=== PATIENT | female | born 1955 | race Caucasian/White ===

== ENCOUNTER → 2017-03-25 | Outpatient (REF) | payer BC ==
[2017-03-25 13:07] LABS: ALBUMIN/GLOBULIN RATIO 1.25 (1.00-1.93); ALKALINE PHOSPHATASE 54 U/L (45-117); ALT/SGPT 35 U/L (12-78); ANION GAP 7 MEQ/L (8-16); AST/SGOT 21 U/L (15-37); BILIRUBIN,TOTAL 0.3 MG/DL (0.2-1.0); BLOOD UREA NITROGEN 17 MG/DL (7-18); CALCIUM LEVEL 9.4 MG/DL (8.8-10.2); CARBON DIOXIDE LEVEL 28 MEQ/L (21-32); CHLORIDE LEVEL 103 MEQ/L (98-107); CHOLESTEROL LEVEL 162 MG/DL (<200); CREATININE FOR GFR 0.87 MG/DL (0.55-1.02); FREE T4 1.22 NG/DL (0.76-1.46); GLOMERULAR FILTRATION RATE > 60.0 (>45); GLUCOSE, FASTING 108 MG/DL (80-110); POTASSIUM SERUM 3.9 MEQ/L (3.5-5.1); SODIUM LEVEL 138 MEQ/L (136-145); TOTAL PROTEIN 7.2 GM/DL (6.4-8.2); TRIGLYCERIDES LEVEL 132 MG/DL (<150)
== END ==
LOC: M LABDRAW1 11:58
PROVIDERS: ATTEND Emergency Medicine
DX: E78.2 Mixed hyperlipidemia (principal); I10 Essential (primary) hypertension; E03.9 Hypothyroidism, unspecified; E11.9 Type 2 diabetes mellitus without complications

== ENCOUNTER → 2017-08-19 | Outpatient (REF) | payer BC ==
[2017-08-19 12:28] LABS: ALBUMIN 4.1 GM/DL (3.2-5.2); ALBUMIN/GLOBULIN RATIO 1.41 (1.00-1.93); ALKALINE PHOSPHATASE 58 U/L (45-117); ALT/SGPT 42 U/L (12-78); ANION GAP 7 MEQ/L (8-16); AST/SGOT 23 U/L (7-37); BILIRUBIN,TOTAL 0.4 MG/DL (0.2-1.0); BLOOD UREA NITROGEN 19 MG/DL (7-18); CALCIUM LEVEL 9.4 MG/DL (8.8-10.2); CARBON DIOXIDE LEVEL 29 MEQ/L (21-32); CHLORIDE LEVEL 106 MEQ/L (98-107); CHOLESTEROL LEVEL 198 MG/DL (<200); CREATININE FOR GFR 0.81 MG/DL (0.55-1.02); FREE T4 1.05 NG/DL (0.76-1.46); GLOMERULAR FILTRATION RATE > 60.0 (>45); GLUCOSE, FASTING 120 MG/DL (80-110); POTASSIUM SERUM 4.1 MEQ/L (3.5-5.1); SODIUM LEVEL 142 MEQ/L (136-145); TRIGLYCERIDES LEVEL 158 MG/DL (<150)
== END ==
LOC: M LABDRAW1 10:25
PROVIDERS: ATTEND Emergency Medicine
DX: I10 Essential (primary) hypertension (principal); E78.2 Mixed hyperlipidemia; E11.9 Type 2 diabetes mellitus without complications; E03.9 Hypothyroidism, unspecified

== ENCOUNTER → 2018-03-10 | Outpatient (REF) | payer BC ==
[2018-03-10 15:33] LABS: ALT/SGPT 43 U/L (12-78); ANION GAP 5 MEQ/L (8-16); AST/SGOT 28 U/L (7-37); BLOOD UREA NITROGEN 19 MG/DL (7-18); CALCIUM LEVEL 9.5 MG/DL (8.8-10.2); CARBON DIOXIDE LEVEL 27 MEQ/L (21-32); CHLORIDE LEVEL 107 MEQ/L (98-107); CREATININE FOR GFR 0.94 MG/DL (0.55-1.30); GLOMERULAR FILTRATION RATE > 60.0 (>45); GLUCOSE, FASTING 126 MG/DL (70-100); POTASSIUM SERUM 4.3 MEQ/L (3.5-5.1); SODIUM LEVEL 139 MEQ/L (136-145)
[2018-03-10 15:34] LABS: ALBUMIN 4.3 GM/DL (3.2-5.2); ALBUMIN/GLOBULIN RATIO 1.34 (1.00-1.93); ALKALINE PHOSPHATASE 57 U/L (45-117); BILIRUBIN,TOTAL 0.5 MG/DL (0.2-1.0); CHOLESTEROL LEVEL 158 MG/DL (<200); CHOLESTEROL RISK RATIO 2.771 (<5); FREE T4 1.06 NG/DL (0.76-1.46); HDL CHOLESTEROL 57 MG/DL (>40); LDL CHOLESTEROL 80.8 MG/DL (<100); NON-HDL-C 101 MG/DL; TOTAL PROTEIN 7.5 GM/DL (6.4-8.2); TRIGLYCERIDES LEVEL 101 MG/DL (<150)
[2018-03-10 15:39] LABS: ESTIMATED AVERAGE GLUCOSE 148 MG/DL (60-110); HEMOGLOBIN A1c 6.8 %
== END ==
LOC: M LAB REF 14:18
DX: E78.2 Mixed hyperlipidemia (principal); I10 Essential (primary) hypertension; E11.9 Type 2 diabetes mellitus without complications; E03.9 Hypothyroidism, unspecified
CPT/HCPCS: 84443

== ENCOUNTER → 2018-09-14 | Outpatient (REF) | payer BC ==
[2018-09-14 18:28] LABS: ALBUMIN 4.6 GM/DL (3.2-5.2); ALKALINE PHOSPHATASE 62 U/L (45-117); ALT/SGPT 52 U/L (12-78); ANION GAP 5 MEQ/L (8-16); AST/SGOT 28 U/L (7-37); BILIRUBIN,TOTAL 0.4 MG/DL (0.2-1.0); BLOOD UREA NITROGEN 22 MG/DL (7-18); CALCIUM LEVEL 9.9 MG/DL (8.8-10.2); CARBON DIOXIDE LEVEL 31 MEQ/L (21-32); CHLORIDE LEVEL 104 MEQ/L (98-107); CREATININE FOR GFR 0.84 MG/DL (0.55-1.30); GLOMERULAR FILTRATION RATE > 60.0 (>45); GLUCOSE, FASTING 115 MG/DL (70-100); SODIUM LEVEL 140 MEQ/L (136-145); TOTAL PROTEIN 7.3 GM/DL (6.4-8.2)
[2018-09-14 18:35] LABS: ESTIMATED AVERAGE GLUCOSE 140 MG/DL (60-110); HEMOGLOBIN A1c 6.5 %
== END ==
LOC: M LABDRAW1 11:50
DX: E11.9 Type 2 diabetes mellitus without complications (principal); E03.9 Hypothyroidism, unspecified
CPT/HCPCS: 84443

== ENCOUNTER → 2018-12-05 | Outpatient (REF) | payer BC ==
[2018-12-05 10:56] LABS: ALBUMIN 4.4 GM/DL (3.2-5.2); ALT/SGPT 47 U/L (12-78); BASO # 0.1 10^3/uL (0.0-0.2); BASO % 0.8 % (0.0-1.0); BILIRUBIN,TOTAL 0.4 MG/DL (0.2-1.0); BLOOD UREA NITROGEN 13 MG/DL (7-18); CALCIUM LEVEL 9.4 MG/DL (8.8-10.2); CARBON DIOXIDE LEVEL 30 MEQ/L (21-32); CHLORIDE LEVEL 106 MEQ/L (98-107); CREATININE FOR GFR 0.77 MG/DL (0.55-1.30); EOS # 0.2 10^3/uL (0.0-0.50); EOS % 3.6 % (0.0-3.0); GLOMERULAR FILTRATION RATE > 60.0 (>45); GLUCOSE, FASTING 118 MG/DL (70-100); HEMATOCRIT 45.2 % (36.0-47.0); HEMOGLOBIN 14.4 g/dl (12.0-15.5); LYMPH % 49.8 % (24.0-44.0); MEAN CORPUSCULAR HEMOGLOBIN 29.2 pg (27.0-33.0); MEAN CORPUSCULAR HGB CONC 31.9 g/dl (32.0-36.5); MEAN CORPUSCULAR VOLUME 91.7 fl (80.0-96.0); MONO # 0.4 10^3/uL (0.0-0.8); MONO % 7.2 % (0.0-5.0); NEUTROPHILS # 2.3 10^3/uL (1.8-7.7); NEUTROPHILS % 38.3 % (36.0-66.0); PLATELET COUNT, AUTOMATED 197 10^3/uL (150-450); POTASSIUM SERUM 4.2 MEQ/L (3.5-5.1); RED BLOOD COUNT 4.93 10^6/uL (4.00-5.40); SODIUM LEVEL 142 MEQ/L (136-145); TOTAL PROTEIN 7.4 GM/DL (6.4-8.2); WHITE BLOOD COUNT 6.1 10^3/uL (4.0-10.0)
[2018-12-05 11:16] LABS: HEMOGLOBIN A1c 6.4 %
== END ==
LOC: M LABDRAW1 10:30
PROVIDERS: ATTEND Family Medicine
DX: E11.69 Type 2 diabetes mellitus with other specified complication (principal)

== ENCOUNTER 2019-08-16 08:52 | Outpatient (RCR) | payer BC ==
[2019-08-23] MEDS ORDERED: FENO160T10 PO (10:30)
[2019-08-23] MEDS ORDERED: MULTCAP PO (10:30)
[2019-08-23] MEDS ORDERED: LEVO112T2 PO (10:30)
[2019-08-23] MEDS ORDERED: NAPR220C14 PO (10:30)
[2019-08-23] MEDS ORDERED: VALS160T PO (10:48)
[2019-09-06] MEDS ORDERED: PERC5TAB12 PO ×2 (07:22→07:25)
[2019-09-06] MEDS ORDERED: XARE10TA PO (07:22)
== END 2019-09-09 ==
LOC: M PT 08:52
PROVIDERS: ATTEND Physician Assistant
DX: Z47.89 Encounter for other orthopedic aftercare (principal)

== ENCOUNTER → 2019-08-16 | Outpatient (CLI) | payer BC ==
[2019-08-16 09:03] LABS: HEMATOCRIT 45.8 % (36.0-47.0); HEMOGLOBIN 14.2 g/dl (12.0-15.5); MEAN CORPUSCULAR HEMOGLOBIN 28.9 pg (27.0-33.0); MEAN CORPUSCULAR VOLUME 93.3 fl (80.0-96.0); PLATELET COUNT, AUTOMATED 189 10^3/uL (150-450); RED BLOOD COUNT 4.91 10^6/uL (4.00-5.40); WHITE BLOOD COUNT 7.8 10^3/uL (4.0-10.0)
[2019-08-16 09:28] LABS: INR 0.99; PROTHROMBIN TIME 12.8 SECONDS (11.8-14.0)
[2019-08-16 09:29] LABS: ALBUMIN 4.5 GM/DL (3.2-5.2); ALT/SGPT 60 U/L (12-78); BILIRUBIN,TOTAL 0.6 MG/DL (0.2-1.0); BLOOD UREA NITROGEN 19 MG/DL (7-18); CALCIUM LEVEL 9.8 MG/DL (8.8-10.2); CARBON DIOXIDE LEVEL 29 MEQ/L (21-32); CHLORIDE LEVEL 105 MEQ/L (98-107); CREATININE FOR GFR 0.82 MG/DL (0.55-1.30); GLOMERULAR FILTRATION RATE > 60.0 (>45); GLUCOSE, FASTING 137 MG/DL (70-100); POTASSIUM SERUM 4.1 MEQ/L (3.5-5.1); SODIUM LEVEL 140 MEQ/L (136-145); TOTAL PROTEIN 7.5 GM/DL (6.4-8.2)
[2019-08-16 09:30] LABS: ERYTHROCYTE SEDIMENTATION RATE 5 mm/hr (0-30)
--- NOTE | 2019-08-16 15:09 | REP ---
Two-view chest: A 03/29. Indication: New preoperative assessment. Comparison: 07/03/2009. Findings: Multiple left axillary and right upper quadrant abdominal surgical clips are present. Scoliosis is noted. There is no air space consolidation. No significant pleural effusion or pneumothorax is present. There is no significant enlargement of the cardiac silhouette. Impression: No acute cardiopulmonary process. Electronically Signed by Scout Fiore DO 08/16/2019 03:01 P
--- NOTE | 2019-08-17 08:29 | ECGEPIP ---
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
== END ==
LOC: M LAB 08:06
PROVIDERS: ATTEND Orthopaedic Surgery
DX: Z01.810 Encounter for preprocedural cardiovascular examination (principal); M17.11 Unilateral primary osteoarthritis, right knee

== ENCOUNTER 2019-09-05 09:50 | Inpatient (IN) | payer BC ==
--- NOTE | 2019-08-30 10:58 | HPE ---
DATE OF ANTICIPATED ADMISSION: 09/05/2019 ATTENDING PHYSICIAN: Dr. Beto Kovacs CHIEF COMPLAINT: Right knee pain and stiffness. HISTORY: Kandace is a 63-year-old female presenting to clinic with continued right knee pain and stiffness. She has failed to improve with conservative measures. Patient continues to have symptoms with weightbearing activities and activities of daily living. She consented for an elective right total knee arthroplasty with Dr. Kovacs for her continued symptoms. Medical optimization completed with Dr. Silvia Olivares. CURRENT MEDICATIONS: - thyroxine 112 mcg daily - Epipen as needed - Diovan/hydrochlorothiazide 160/12.5 mg daily - fenofibrate 160 mg daily - Aleve 220 mg twice daily - multivitamin - melatonin 3 mg every evening - amlodipine 5 mg daily - Lofibra 160 mg daily ALLERGIES: Peanut oil, nuts. CHRONIC MEDICAL CONDITIONS: History of breast cancer and uterine cancer. Hypertension. Hyperlipidemia. Hypothyroid. Insomnia. PAST SURGICAL HISTORY: Dilation and curettage. Lumpectomy. Cholecystectomy. Appendectomy. Uterine and endometrial biopsies. Hysterectomy with lymph node dissection. SOCIAL HISTORY: The patient is and lives at home with spouse. She does not use tobacco and occasionally uses alcohol. REVIEW OF SYSTEMS: The patient denies fevers, chills, nausea, vomiting or diarrhea. She denies chest pain, shortness of breath, lightheadedness, dizziness or headaches. She denies abdominal pain. She denies any recent upper respiratory or urinary tract infection symptoms. The patient does continue to have right knee pain with weightbearing activities and activities of daily living. PHYSICAL EXAMINATION: GENERAL: Well-nourished, well-developed female in no apparent distress. She is alert, oriented and cooperative. Mood and affect are appropriate. VITAL SIGNS: Height 60 inches, weight 224.2 pounds, temperature 96.1, blood pressure 142/86, heart rate 74, respirations 12. NECK: Supple without lymphadenopathy. HEART: Regular rate and rhythm. LUNGS: Clear to auscultation bilaterally. Breathing is regular and nonlabored. ABDOMEN: Bowel sounds are present. Abdomen is soft and nontender to palpation. MUSCULOSKELETAL: Right knee exhibits no gross abnormalities. Skin is intact. She can extend knee fully and flex to approximately 110 degrees. Right lower extremity strength is 5/5. No hip irritability elicited with range of motion testing. Calf is soft, nontender to palpation with no palpable cords noted. She is neurovascularly intact distally. LABORATORY DATA: Comprehensive metabolic profile: Fasting glucose elevated at 137, BUN elevated at 19, creatinine 0.82, GFR greater than 60, sodium 140, potassium 4.1, chloride 105, carbon dioxide 29, anion gap decreased at 6, calcium 9.8, AST elevated at 41, ALT 60, alkaline phosphatase 72, total bilirubin 0.6, total protein 7.5, albumin 4.5, albumin-globulin ratio 1.50. Prothrombin time 12.8, INR 0.99. Complete blood count: ESR 5, WBC 7.80, RBC 4.91, hemoglobin 14.2, hematocrit 45.8, platelets 189.. IMPRESSION: Right knee osteoarthritis with x-rays notable for end-stage degenerative changes. PLAN: The patient has consented for an elective right total knee arthroplasty with Dr. Kovacs for her continued symptoms. Medical optimization completed with Dr. Silvia Olivares. RITA
[~2019-09-05] VITALS: Ht 152.4 cm; Wt 100.7 kg
[~2019-09-05 09:50] MED LIST: ACETAMINOPHEN 500 MG TAB PO ONE; FENO160T10 PO; LEVO112T2 PO; LIDOCAINE 1% MDV 20ML VIAL SQ PRN; LR 1,000 ML IV ONE; MULTCAP PO; NAPR220C14 PO; VALS160T PO; ceFAZolin SOD 1 GM in D5W MINI-BAG PLUS 50 ML IV ONE; ceFAZolin SOD 2 GM in IV 1 EA IV ONE
[2019-09-05] MEDS ORDERED: EPINEPHrine INJ 1 MG/ML 1ML AMP As Ordered ONE (12:58)
[2019-09-05] MEDS ORDERED: TRANEXAMIC ACID 100 MG/ML 10ML VIAL As Ordered ONE (12:58)
[2019-09-05] MEDS ORDERED: BUPIVACAINE HCL 0.25% 10 ML VIAL As Ordered ONE (12:58)
[2019-09-05] MEDS ORDERED: ceFAZolin 1GM INJ (J0690 PER 500MG) As Ordered ONE (12:58)
[2019-09-05] MEDS ORDERED: BUPIVACAINE LIPOSOME/PF 1.3% 20ML VIAL (13.3MG/ML)(EXPAREL)(C9290 PER1MG) As Ordered ONE (12:59)
[2019-09-05] MEDS ORDERED: LIDOCAINE 2% INJ 100 MG/5 ML SDV (FOR ANES.) As Ordered ONE (13:19)
[2019-09-05] MEDS ORDERED: PROPOFOL 200 MG/20 ML VIAL As Ordered ONE ×4 (13:19→16:23)
[2019-09-05] MEDS ORDERED: MIDAZOLAM INJ 2 MG/2 ML VIAL (J2250) As Ordered ONE (13:29)
[2019-09-05] MEDS ORDERED: fentaNYL 100 MCG/2 ML INJECTION (J3010) As Ordered ONE (13:29)
[2019-09-05] MEDS ORDERED: MIDAZOLAM INJ 5 MG/ML VIAL (J2250) As Ordered ONE (13:44)
[2019-09-05] MEDS ORDERED: MIDAZOLAM INJ 2 MG/2 ML VIAL (J2250) IV ONE (14:00)
[2019-09-05] MEDS ORDERED: fentaNYL 100 MCG/2 ML INJECTION (J3010) IV ONE (14:00)
[2019-09-05] MEDS ORDERED: ONDANSETRON 4MG/2ML VIAL (J2405) As Ordered ONE (15:48)
[2019-09-05] MEDS ORDERED: ePHEDrine SULFATE 25 MG/5 ML(5MG/ML) SYRINGE As Ordered ONE (15:48)
[2019-09-05] MEDS ORDERED: HYDROMORPHONE HCL 0.5 MG/ 0.5 ML SYRINGE (J1170 PER 1) IV PRN ×2 (17:15)
[2019-09-05] MEDS ORDERED: ONDANSETRON 4MG/2ML VIAL (J2405) IV PRN (17:15)
[2019-09-05] MEDS ORDERED: FLEET ENEMA PR PRN (17:15)
[2019-09-05] MEDS ORDERED: LR 1,000 ML IV SCH ×2 (17:15)
[2019-09-05] MEDS ORDERED: ACETAMINOPHEN TAB 650MG DOSE (2X325MG) PO PRN (17:15)
[2019-09-05] MEDS ORDERED: PERCOCET 5MG/325MG TAB As Ordered ONE (17:29)
--- NOTE | 2019-09-05 17:30 | REP ---
RIGHT KNEE, TWO VIEWS: Two views of the right knee performed. There is a total knee prosthesis in place, in good position. Osseous structures are well aligned and intact. Metallic skin brayden are seen anteriorly. Electronically Signed by Michoacano Lancaster MD 09/06/2019 09:57 A
[2019-09-05] MEDS: PERCOCET 5MG/325MG TAB PO PRN ×2 (17:34→17:59)
[2019-09-05] MEDS: fentaNYL 100 MCG/2 ML INJECTION (J3010) IV PRN ×4 (17:40→18:09)
--- NOTE | 2019-09-05 18:21 | CR.PDOC ---
General Date of Consultation: Sep 05, 2019 Consultation CHIEF COMPLAINT: R. knee pain HISTORY OF PRESENT ILLNESS: Patient is a 63F with PMH HTN, Hypothyroidism, and chronic R. knee pain presented for R. total knee replacement. She reported that she has had pain in the R. knee for 52 years and finally got the surgery for it today. She reports feeling some pain in the right knee, 7/10, radiating inferiorly. She offered no other complaints apart from R. knee discomfort including any chest pain, SOB, fever, chills, nausea or vomiting. PAST MEDICAL HISTORY: Refer to HPI PAST SURGICAL HISTORY: Lumpectomy Cholecystectomy Appendectomy Hysterectomy SOCIAL HISTORY: Social alcohol. Denies tobacco or illicit drug use. FAMILY HISTORY: Father- CAD Mother- CO, DM ALLERGIES: Please see below. REVIEW OF SYSTEMS: 10 point review of system negative except as stated in HPI HOME MEDICATIONS: Please see below. PHYSICAL EXAMINATION: General: Mild distress, Alert Eyes: Normal sclera, EOMI, DAPHNE HENT: Atraumatic Cardiovascular: Normal rate, normal rhythm. Pulmonary: Clear to auscultation b/l, no wheezing GI: Soft, nontender, nondistended Skin: Warm and dry MSK: R. knee covered in wrap, clean and dry. Neuro: CN grossly intact. No focal deficits. Strengths equal b/l. Psych: oriented x 3 LABORATORY DATA: See below. MICROBIOLOGY: Please see below. ASSESSMENT AND PLAN: 1. R. knee pain - s/p R. total knee replacement 09/05. - Pain control per ortho. - on Xarelto for DVT ppx. 2. Hypothyroidism - Resume home dose synthroid. 3. HTN - BP controlled at this time. - Diuretics had been held today. Resume all meds tomorrow. 4. HLD - Resume statin. 5. Insominia - Intermittently and takes melatonin at home PRN. - Rozerem PRN. Vital Signs/I&O Vital Signs Date Time Temp Pulse Resp B/P (MAP) Pulse Ox O2 Delivery O2 Flow Rate FiO2 09/05/19 17:44 97.5 79 16 118/77 (91) 96 Nasal Cannula 2 Allergies Coded Allergies: No Known Allergies (Verified , 01/30/05) Home Medications Scheduled Fenofibrate (Fenofibrate) 160 Mg Tablet, 160 MG PO DAILY for 30 Days, #30 (Reported) Levothyroxine Sodium (Levothyroxine Sodium) 112 Mcg Tablet, 112 MCG PO DAILY for 30 Days, #30 (Reported) Multivitamin (Multivitamins) 1 Each Capsule, 1 CAP PO DAILY, #30 (Reported) Naproxen Sodium (Aleve) 220 Mg Capsule, 220 MG PO DAILY, (Reported) Valsartan/Hydrochlorothiazide (Valsartan-Hctz 160-12.5 mg Tab) 1 Each Tablet, 1 TAB PO DAILY for 30 Days, #30 (Reported) RISHABH FONTENOT MD Sep 05, 2019 18:21
[2019-09-05 18:45] VITALS: BP 145/82
[2019-09-05 19:05] VITALS: BP 140/76
[2019-09-05] MEDS ORDERED: PERCOCET 5MG/325MG TAB PO PRN (19:15)
[2019-09-05] MEDS ORDERED: ONDANSETRON 4 MG TAB (S0181) PO PRN (19:15)
[2019-09-05] MEDS: ceFAZolin SOD 2 GM in IV 1 EA IV SCH (19:57)
[2019-09-05 20:00] VITALS: BP 156/85
[2019-09-05 21:28] VITALS: BP 150/84
[2019-09-05 22:33] VITALS: BP 146/86
[2019-09-05 23:30] VITALS: BP 151/78
[2019-09-06] MEDS: PERCOCET 5MG/325MG TAB PO PRN ×2 (02:36→12:03)
[2019-09-06] MEDS: ceFAZolin SOD 2 GM in IV 1 EA IV SCH ×2 (02:37→08:37)
[2019-09-06 06:00] VITALS: BP 157/84
[2019-09-06] MEDS ORDERED: LEVOTHYROXINE 112MCG TABLET (0.112MG) PO SCH (06:00)
[2019-09-06 06:01] LABS: HEMOGLOBIN 12.3 g/dl (12.0-15.5); MEAN CORPUSCULAR HGB CONC 32.4 g/dl (32.0-36.5); MEAN CORPUSCULAR VOLUME 92.7 fl (80.0-96.0); PLATELET COUNT, AUTOMATED 187 10^3/uL (150-450)
[2019-09-06 06:29] LABS: BLOOD UREA NITROGEN 14 MG/DL (7-18); CALCIUM LEVEL 8.8 MG/DL (8.8-10.2); CARBON DIOXIDE LEVEL 27 MEQ/L (21-32); CHLORIDE LEVEL 108 MEQ/L (98-107); CREATININE FOR GFR 0.87 MG/DL (0.55-1.30); GLOMERULAR FILTRATION RATE > 60.0 (>45); GLUCOSE, FASTING 163 MG/DL (70-100); POTASSIUM SERUM 4.2 MEQ/L (3.5-5.1); SODIUM LEVEL 141 MEQ/L (136-145)
[2019-09-06] MEDS ORDERED: PERC5TAB12 PO ×2 (07:22→07:25)
[2019-09-06] MEDS ORDERED: XARE10TA PO (07:22)
[2019-09-06 08:37] VITALS: BP 157/84
[2019-09-06] MEDS ORDERED: MOM 30ML SUSPENSION UDC PO SCH (09:00)
[2019-09-06] MEDS ORDERED: VALSARTAN 80 MG TAB (DIOVAN) PO SCH (09:00)
[2019-09-06] MEDS ORDERED: hydroCHLOROthiazide 12.5 MG CAPSULE PO SCH (09:00)
[2019-09-06] MEDS ORDERED: SENOKOT S TAB PO SCH (09:00)
[2019-09-06] MEDS ORDERED: MIRALAX *UNIT DOSE* 17GM PACKET PO SCH (09:00)
[2019-09-06 10:00] VITALS: BP 125/74
--- NOTE | 2019-09-06 11:56 | IPNPDOC ---
Date Seen The patient was seen on 09/06/19. Progress Note SUBJECTIVE: Patient seen and examined this morning. She was very pleasant. She states shes feeling well at this current time. She does endorse that early this morning she was nauseous and she did have an episode of vomiting of last night meal. She did ambulate again after and her nausea did get better she states. Her blood pressure has gotten better as well when she was restarted on her home medications. She has no other complaints at this time. She denies fevers, chills, night sweats, abdominal pain. She denies any worsening right knee pain as well. OBJECTIVE PHYSICAL EXAMINATION: VITAL SIGNS: Please see below. GENERAL: Pleasant 63-year-old female laying in bed awake alert oriented speaking in complete sentences no acute distress] HEENT: Moist mucous membranes no JVD CARDIOVASCULAR: S1 S2 regular no additional heart sounds appreciated. RESPIRATORY: Clear to auscultation bilaterally. ABDOMINAL: Bowel sounds present abdomen soft and nontender EXTREMITIES: No clubbing cyanosis or edema. Right knee surgical site examined. Dressing on top no bloody discharge or tenderness on palpation. Appropriate swelling around the knee status post surgical manipulation. Range of Motion not tested. NEUROLOGICAL cranial 2 through 12 grossly intact no gross focal deficits appreci ated PSYCHOLOGICAL: Appropriate LABORATORY DATA, MICROBIOLOGY: Please see below. IMAGING STUDIES: 09/06/2019 - Right knee Xray There is a total knee prosthesis in place, in good position. Osseous structures are well aligned and intact. Metallic skin brayden are seen anteriorly. ASSESSMENT AND PLAN: This is a 63 -year-old female here for elective right total knee replacement. PROBLEMS: 1. Right knee pain status post right total knee replacement -Pain control per ortho - DVT prophylaxis per orthopedic -Bowel regimen per ortho 2. Hypothyroidism - c/w Synthroid 112 g 3. HTN - c/w valsartan and hydrochlorothiazide 4. HLD -Well hold home fenofibrate. Can resume on discharge 5. Insominia - Intermittently and takes melatonin at home PRN. - c/w Rozerem PRN. DVT prophylaxis: Xarelto 10 mg DISPOSITION: Medically stable. May discharge home Once cleared by PT ATTENDING NOTE I have personally evaluated and examined the patient. Discussed with residents and student regarding plan of care and agree with the above assessment and plan. VS, I&O, 24H, Fishbone Vital Signs/I&O Vital Signs Date Time Temp Pulse Resp B/P (MAP) Pulse Ox O2 Delivery O2 Flow Rate FiO2 09/06/19 08:37 157/84 09/06/19 06:00 98.7 83 18 99 Room Air 09/05/19 22:33 2.0 I&O- Last 24 Hours up to 6 AM 09/06/19 06:00 Intake Total 2334 ml Output Total 450 ml Balance 1884 ml Laboratory Data 24H LABS Laboratory Tests 2 09/06/19 05:44: Nucleated Red Blood Cells % (auto) 0.0, Anion Gap 6L, Glomerular Filtration Rate > 60.0, Calcium Level 8.8 CBC/BMP Laboratory Tests 09/06/19 05:44 JAUN AMADOR DO Sep 06, 2019 11:55 RISHABH FONTENOT MD Sep 06, 2019 13:42
[2019-09-06] MEDS ORDERED: RAMELTEON 8 MG TAB (ROZEREM) PO PRN (12:00)
[2019-09-06] MEDS ORDERED: ROPIvacaine 0.5% 30 ML INJECTION (J2795 PER 1MG) ONE (15:10)
[2019-09-06] MEDS ORDERED: dexameTHASONE 10 MG/1 ML VIAL PRES.FREE (J1100) ONE (15:10)
[2019-09-06] MEDS ORDERED: RIVAROXABAN 10 MG TAB (XARELTO) PO SCH (18:00)
--- NOTE | 2019-09-07 07:58 | RO ---
DATE OF PROCEDURE: 09/05/2019 PREOPERATIVE DIAGNOSIS: Right knee degenerative arthritis. POSTOPERATIVE DIAGNOSIS: Right knee degenerative arthritis. PROCEDURE: Right total knee arthroplasty using a size 5 cruciate retaining cemented femoral component with a size 4 tibial tray and a 5 mm rotating platform polyethylene insert and a 32 mm button. All components were cemented. Prosthesis was an Attune knee made by [employer]. SURGEON: Beto Goddard MD FINISH CLEANER: Mr. Farooq Pablo ANESTHESIA: Spinal with right femoral nerve block. COMPLICATIONS: None. ESTIMATED BLOOD LOSS: 20 mL. SPECIMENS: Joint surface. DESCRIPTION OF PROCEDURE: Antibiotics were given intravenously preoperatively, then a successful a right femoral nerve block and then a spinal anesthetic was induced. Tourniquet placed right upper thigh and not inflated. Right lower extremity was carefully prepped and draped in the usual sterile fashion and then elevated. After appropriate time-out, the tourniquet was inflated. Then, a longitudinal incision was made for a medial parapatellar approach to the knee. Bovie cautery was used to coagulate crossing vessels. Capsulotomy was performed and subperiosteal dissection around the proximal medial and lateral tibia plateaus performed and the patella was everted and the knee flexed. Anterior cruciate ligament (ACL) debrided. Drill placed down the center of the femoral canal, followed by the intramedullary kristen and the distal femoral cutting jig set at 9 mm resection level at a 5 degree valgus for a right knee. Block was pinned into position. Distal femoral cut performed. It looked a bit thin especially laterally, but we decided to go by the guide from the template. We went along with the measurements from cutting jig. AP sizing jig measured for a size 5. 3 degrees of external rotation dialed in for a right knee. Pins were placed, followed by the 4-in-1 block, then the anterior, posterior and chamfer cuts performed. The sulcus cut guide was then placed and then sulcus cut performed. We then exposed the proximal tibia, used the extramedullary tibial alignment jig to estimate being parallel to the mechanical axis. We referenced off the medial tibial condyle at 4 mm resection level. The block was pinned into position. Secondary check with the extramedullary kristen confirmed that we appeared to be parallel to the mechanical axis of the tibia. Thus, the proximal tibial osteotomy was performed. The lamina dealer account manager was placed medially and we performed a completion lateral meniscectomy and debridement of the posterior lateral osteophytes. We then placed a lamina dealer account manager laterally and performed a completion medial meniscectomy and debridement of the posterior medial osteophytes. The sizing block placed. 6 mm in flexion seemed to reasonable. However, she was quite tight in extension and this quite reproducible. She did not quite come out to full extension. Thus, I felt it best to take more of the distal femur. Thus, the intramedullary kristen was re-applied and then we set the distal femoral cutting jig at 2 mm, re-pinned the jig and took additional 2 mm. The spacer block was trialed once again and still a bit too snug and I felt an additional 2 mm would help get her fully extended. Thus, I took two more additional millimeters of the distal femur. We then used the batwing and the saw blade to reapply the 4-in-1 block in appropriate position and then redid the chamfer cuts and the sulcus cut. The spacer block now fit nicely at actually 5 mm and she had good stability in varus and valgus stress testing both in flexion and extension. We then exposed the proximal tibia, sized for a #4 tibial tray, which was pinned into position, followed by the reamer and the broach. Trial polyethylene was placed. Trial femoral component was placed. We brought the knee into the extension, everted the patella and performed a patellar osteotomy. Sized for a 32 button. The lug hole was drilled. Trial placed. The patellofemoral tracking was anatomic. We drilled the lug holes for the femur, then removed all the trials. Copiously pulsatile lavage irrigated out the knee joint at this point, and then Exparel was placed in the subperiosteal tissues of the distal femur and the tibia. Mr. Farooq Pablo mixed the cement on the back table as I prepared the bony surfaces for cementing by copiously pulsatile lavage irrigating out the knee joint. Mr. Pablo was critical to the success of this difficult procedure by helping with appropriate soft tissue retraction, helped to manipulate the knee, helped to close the wound, helped to mix cement, helped to prepare the patient, amongst many other tasks to allow me to perform the operation smoothly, efficiently and safely. Once all the bony surfaces were thoroughly irrigated and dried, we cemented the tibial tray, removed the excess cement. Placed the polyethylene, cemented the femoral component and removed excess cement. Brought the knee into extension and then cemented the patellar button, removed excess cement and held it with a clamp until the cement hardened with the knee in full extension. As were awaiting for the cement to harden, we copiously irrigated out the knee joint with sterile saline solution and then tranexamic acid (TXA), then began closing the apex through arthrotomy with two #1 PDS sutures. The medial parapatellar area was closed with a #1 PDS suture, then the capsule was closed with a running double armed Stratafix. We then released the tourniquet and copiously irrigated out the subdermal tissues, closed them with interrupted #2-0 PDS suture. The skin was closed with brayden and covered by an Optifoam and dry sterile bulky dressing. She was then transferred to the recovery room in stable condition. There were no intraoperative complications.
--- NOTE | 2019-09-11 16:09 | DSES ---
DATE OF ADMISSION: 09/05/2019 DATE OF DISCHARGE: 09/06/2019 ADMITTING DIAGNOSIS: Osteoarthritis right knee. OTHER DIAGNOSES: Hypertension. Hypothyroidism. DISCHARGE DIAGNOSIS: Osteoarthritis right knee status post right total knee arthroplasty. OPERATION PERFORMED: Right total knee arthroplasty. HISTORY: This is a pleasant, 63-year-old female patient with progressively worsening right knee pain and stiffness. She failed to improve with conservative management. She was admitted for elective knee replacement on the right side. HOSPITAL COURSE: The patient was admitted on day of surgery, underwent a right total knee arthroplasty, which was uneventful. She did well in the postoperative period and hospital course was without complications. She was up with physical therapy per their protocol and her pain was controlled. On day of discharge, she was doing well weightbearing as tolerated on her right lower extremity. She will use Xarelto 10 mg per their protocol for deep venous thrombosis (DVT) prophylaxis. She also use thromboembolic deterrent (DUANE) stockings for 30 days postop for DVT prophylaxis. She will use oral pain medications for pain control. She will followup in our office in 10-14 days. She was given instructions to include but not limited to wound monitoring activity limitations. Please refer to the medical record for further details.
== END 2019-09-06 15:30 | disposition home or self-care (01) | DRG 302 ==
LOC: M OR 11:05 → M MS5PR 18:25
PROVIDERS: ADMIT Orthopaedic Surgery; ATTEND Orthopaedic Surgery
PROC: 0SRC0J9 Replacement of Right Knee Joint with Synthetic Substitute, Cemented, Open Approach (ICD-10-PCS; principal; 2019-09-05 14:55)
DX: M17.11 Unilateral primary osteoarthritis, right knee (principal); I10 Essential (primary) hypertension; E78.5 Hyperlipidemia, unspecified; E03.9 Hypothyroidism, unspecified; G47.00 Insomnia, unspecified; Z91.018 Allergy to other foods; Z91.010 Allergy to peanuts; Z85.3 Personal history of malignant neoplasm of breast; Z85.42 Personal history of malignant neoplasm of other parts of uterus; Z79.899 Other long term (current) drug therapy; Z90.49 Acquired absence of other specified parts of digestive tract; Z90.79 Acquired absence of other genital organ(s)

== ENCOUNTER → 2019-10-10 | Outpatient (RCR) | payer MEDICARE, OTHER ==
[~2019-10-10] MED LIST changes: -ACETAMINOPHEN 500 MG TAB PO ONE; -LIDOCAINE 1% MDV 20ML VIAL SQ PRN; -LR 1,000 ML IV ONE; +PERC5TAB12 PO; +XARE10TA PO; -ceFAZolin SOD 1 GM in D5W MINI-BAG PLUS 50 ML IV ONE; -ceFAZolin SOD 2 GM in IV 1 EA IV ONE
== END ==
LOC: M PT 09-11 13:28
PROVIDERS: ATTEND Orthopaedic Surgery
DX: Z47.1 Aftercare following joint replacement surgery (principal); Z96.651 Presence of right artificial knee joint

== ENCOUNTER 2019-11-09 09:11 | Outpatient (RCR) | payer MEDICARE, OTHER ==
[~2019-11-09 09:11] MED LIST changes: -VALS160T PO; +VALS160T2 PO
== END 2019-11-10 ==
LOC: M PT 09:11
PROVIDERS: ATTEND Orthopaedic Surgery
DX: Z47.89 Encounter for other orthopedic aftercare (principal); Z96.651 Presence of right artificial knee joint

== ENCOUNTER 2019-11-23 09:09 | Outpatient (RCR) | payer MEDICARE, OTHER | END 2019-12-09 | LOC: M PT 09:09 | PROVIDERS: ATTEND Orthopaedic Surgery | DX: Z47.89 Encounter for other orthopedic aftercare (principal); Z96.651 Presence of right artificial knee joint ==

== ENCOUNTER → 2021-09-19 | Outpatient (CLI) | payer MEDICARE ==
[2021-09-19 13:29] LABS: BASO % 0.5 % (0.0-1.0); EOS # 0.2 10^3/uL (0.0-0.5); EOS % 2.7 % (0.0-3.0); HEMATOCRIT 46.6 % (36.0-47.0); HEMOGLOBIN 14.7 g/dl (12.0-15.5); LYMPH # 3.9 10^3/uL (1.5-5.0); LYMPH % 52.6 % (24.0-44.0); MEAN CORPUSCULAR HEMOGLOBIN 29.1 pg (27.0-33.0); MEAN CORPUSCULAR HGB CONC 31.5 g/dl (32.0-36.5); MEAN CORPUSCULAR VOLUME 92.3 fl (80.0-96.0); MONO # 0.6 10^3/uL (0.0-0.8); MONO % 7.5 % (2.0-8.0); NEUTROPHILS # 2.7 10^3/uL (1.5-8.5); NEUTROPHILS % 36.4 % (36.0-66.0); PLATELET COUNT, AUTOMATED 198 10^3/uL (150-450); RED BLOOD COUNT 5.05 10^6/uL (4.00-5.40); WHITE BLOOD COUNT 7.5 10^3/uL (4.0-10.0)
[2021-09-19 13:57] LABS: HEMOGLOBIN A1c 5.9 %
[2021-09-19 14:08] LABS: ALBUMIN 4.1 GM/DL (3.2-5.2); ALT/SGPT 31 U/L (12-78); BILIRUBIN,TOTAL 0.4 MG/DL (0.2-1.0); BLOOD UREA NITROGEN 20 MG/DL (7-18); CALCIUM LEVEL 10.1 MG/DL (8.8-10.2); CARBON DIOXIDE LEVEL 29 MEQ/L (21-32); CHLORIDE LEVEL 106 MEQ/L (98-107); CHOLESTEROL LEVEL 167 MG/DL (<200); CHOLESTEROL RISK RATIO 2.455 (<5); CREATININE FOR GFR 0.65 MG/DL (0.55-1.30); FREE T4 0.93 NG/DL (0.76-1.46); GLOMERULAR FILTRATION RATE > 60.0 (>45); GLUCOSE, FASTING 122 MG/DL (70-100); HDL CHOLESTEROL 68 MG/DL (>40); LDL CHOLESTEROL 80 MG/DL (<100); NON-HDL-C 99 MG/DL; POTASSIUM SERUM 4.3 MEQ/L (3.5-5.1); SODIUM LEVEL 141 MEQ/L (136-145); TOTAL PROTEIN 7.3 GM/DL (6.4-8.2); TRIGLYCERIDES LEVEL 93 MG/DL (<150)
[2021-09-19 14:16] LABS: CREATININE, URINE 65.2 MG/DL; MALB URINE SIEMENS 7.1 MG/L; MAU/CREAT RATIO 10.8 MCG/MG (0.0-30.0)
== END ==
LOC: M PLALAB 10:48
PROVIDERS: ATTEND Nurse Practitioner Family
DX: E11.69 Type 2 diabetes mellitus with other specified complication (principal); E03.9 Hypothyroidism, unspecified

== ENCOUNTER → 2021-10-01 | Outpatient (REF) | LOC: M LABSMTC 10:32 | PROVIDERS: ATTEND Pediatrics | DX: Z20.822 Contact with and (suspected) exposure to COVID-19 (principal) ==

== ENCOUNTER → 2022-07-21 | Outpatient (CLI) | payer MEDICARE ==
[2022-07-21 11:27] LABS: HEMOGLOBIN A1c 6.2 %
[2022-07-21 11:49] LABS: CHOLESTEROL RISK RATIO 3.046 (<5); FREE T4 0.95 NG/DL (0.76-1.46); THYROID STIMULATING HORMONE 2.33 uIU/ML (0.358-3.740)
== END ==
LOC: M PLALAB 08:45
PROVIDERS: ATTEND Nurse Practitioner Family
DX: E11.69 Type 2 diabetes mellitus with other specified complication (principal); E03.9 Hypothyroidism, unspecified; E78.2 Mixed hyperlipidemia

== ENCOUNTER → 2022-12-14 | Outpatient (CLI) | payer MEDICARE ==
[2022-12-14 13:49] LABS: BASO # 0.1 10^3/uL (0.0-0.2); BASO % 0.7 % (0.0-1.0); EOS # 0.3 10^3/uL (0.0-0.5); HEMATOCRIT 45.8 % (36.0-47.0); HEMOGLOBIN 14.8 g/dl (12.0-15.5); LYMPH # 4.4 10^3/uL (1.5-5.0); LYMPH % 52.4 % (24.0-44.0); MEAN CORPUSCULAR HEMOGLOBIN 30.1 pg (27.0-33.0); MEAN CORPUSCULAR HGB CONC 32.3 g/dl (32.0-36.5); MEAN CORPUSCULAR VOLUME 93.1 fl (80.0-96.0); MONO # 0.7 10^3/uL (0.0-0.8); MONO % 7.7 % (2.0-8.0); NEUTROPHILS % 35.6 % (36.0-66.0); PLATELET COUNT, AUTOMATED 181 10^3/uL (150-450); RED BLOOD COUNT 4.92 10^6/uL (4.00-5.40); WHITE BLOOD COUNT 8.4 10^3/uL (4.0-10.0)
[2022-12-14 15:50] LABS: ALBUMIN 4.3 G/DL (3.2-5.2); ALKALINE PHOSPHATASE 74 U/L (46-116); ALT/SGPT 30 U/L (7.0-40); AST/SGOT 25 U/L (<34); BILIRUBIN,TOTAL 0.6 MG/DL (0.3-1.2); BLOOD UREA NITROGEN 16 MG/DL (9-23); CALCIUM LEVEL 9.9 MG/DL (8.3-10.6); CARBON DIOXIDE LEVEL 28 MMOL/L (20-31); CHLORIDE LEVEL 104 MMOL/L (98-107); CREATININE FOR GFR 0.71 MG/DL (0.55-1.30); FREE T4 1.22 NG/DL (0.89-1.76); GLOMERULAR FILTRATION RATE > 60.0 (>45); GLUCOSE, FASTING 111 MG/DL (74-106); POTASSIUM SERUM 4.2 MMOL/L (3.5-5.1); SODIUM LEVEL 140 MMOL/L (136-145); THYROID STIMULATING HORMONE 3.546 uIU/ML (0.55-4.78); TOTAL PROTEIN 7.1 G/DL (5.7-8.2)
[2022-12-14 16:10] LABS: HEMOGLOBIN A1c 6.2 % (4.0-6.0)
== END ==
LOC: M PLALAB 10:33
PROVIDERS: ATTEND Nurse Practitioner Family
DX: Z00.00 Encounter for general adult medical examination without abnormal findings (principal); E03.9 Hypothyroidism, unspecified; E11.69 Type 2 diabetes mellitus with other specified complication

== ENCOUNTER → 2023-12-23 | Outpatient (CLI) | payer MEDICARE ==
[2023-12-23 16:20] LABS: BASO # 0.1 10^3/uL (0.0-0.2); BASO % 0.8 % (0.0-1.0); EOS # 0.2 10^3/uL (0.0-0.5); EOS % 2.5 % (0.0-3.0); HEMOGLOBIN 14.8 g/dl (12.0-15.5); LYMPH # 4.3 10^3/uL (1.5-5.0); LYMPH % 54.7 % (24.0-44.0); MEAN CORPUSCULAR HEMOGLOBIN 29.4 pg (27.0-33.0); MEAN CORPUSCULAR HGB CONC 32.2 g/dl (32.0-36.5); MEAN CORPUSCULAR VOLUME 91.5 fl (80.0-96.0); MONO # 0.6 10^3/uL (0.0-0.8); MONO % 6.9 % (2.0-8.0); NEUTROPHILS # 2.8 10^3/uL (1.5-8.5); NEUTROPHILS % 34.7 % (36.0-66.0); PLATELET COUNT, AUTOMATED 184 10^3/uL (150-450); RED BLOOD COUNT 5.03 10^6/uL (4.00-5.40); WHITE BLOOD COUNT 7.9 10^3/uL (4.0-10.0)
[2023-12-23 16:24] LABS: ALBUMIN 4.5 G/DL (3.2-5.2); ALKALINE PHOSPHATASE 74 U/L (46-116); ALT/SGPT 34 U/L (7.0-40); AST/SGOT 26 U/L (<34); BILIRUBIN,TOTAL 0.6 MG/DL (0.3-1.2); BLOOD UREA NITROGEN 16 MG/DL (9-23); CALCIUM LEVEL 9.3 MG/DL (8.3-10.6); CARBON DIOXIDE LEVEL 29 MMOL/L (20-31); CHLORIDE LEVEL 104 MMOL/L (98-107); CHOLESTEROL LEVEL 196 MG/DL (<200); CHOLESTEROL RISK RATIO 3.59 (<5); CREATININE FOR GFR 0.63 MG/DL (0.55-1.30); GLOMERULAR FILTRATION RATE > 60.0 (>45); GLUCOSE, FASTING 128 MG/DL (74-106); HDL CHOLESTEROL 54.5 MG/DL (>40); LDL CHOLESTEROL 117.5 MG/DL (<100); NON-HDL-C 141.5 MG/DL; POTASSIUM SERUM 4.1 MMOL/L (3.5-5.1); SODIUM LEVEL 138 MMOL/L (136-145); TOTAL PROTEIN 7.4 G/DL (5.7-8.2); TRIGLYCERIDES LEVEL 120 MG/DL (<150)
[2023-12-23 16:26] LABS: FREE T4 1.09 NG/DL (0.89-1.76)
[2023-12-23 16:46] LABS: CREATININE, URINE 103.3 MG/DL; MAU/CREAT RATIO 3.8 MCG/MG (0.0-30.0)
[2023-12-23 16:54] LABS: HEMOGLOBIN A1c 6.6 % (4.0-6.0)
== END ==
LOC: M PLALAB 12:06
PROVIDERS: ATTEND Nurse Practitioner Family
DX: I10 Essential (primary) hypertension (principal)

== ENCOUNTER → 2024-12-27 | Outpatient (CLI) | payer MEDICARE ==
[2024-12-27 16:59] LABS: HEMOGLOBIN A1c 5.6 % (4.0-6.0)
[2024-12-27 17:10] LABS: CREATININE, URINE 142.7 MG/DL; MAU/CREAT RATIO 3.5 MCG/MG (0.0-30.0)
[2024-12-27 17:12] LABS: ALBUMIN 4.4 G/DL (3.2-5.2); ALKALINE PHOSPHATASE 78 U/L (35-104); ALT/SGPT 30 U/L (7.0-40); AST/SGOT 23 U/L (<34); BILIRUBIN,TOTAL 0.5 MG/DL (0.3-1.2); BLOOD UREA NITROGEN 16 MG/DL (9-23); CALCIUM LEVEL 9.8 MG/DL (8.3-10.6); CARBON DIOXIDE LEVEL 26 MMOL/L (20-31); CHLORIDE LEVEL 105 MMOL/L (98-107); CHOLESTEROL LEVEL 180 MG/DL (<200); CHOLESTEROL RISK RATIO 3.18 (<5); CREATININE FOR GFR 0.74 MG/DL (0.55-1.30); GLOMERULAR FILTRATION RATE > 60.0 (>39); GLUCOSE, FASTING 100 MG/DL (74-106); HDL CHOLESTEROL 56.6 MG/DL (>40); LDL CHOLESTEROL 99.2 MG/DL (<100); NON-HDL-C 123.4 MG/DL; POTASSIUM SERUM 4.4 MMOL/L (3.5-5.1); SODIUM LEVEL 143 MMOL/L (136-145); THYROID STIMULATING HORMONE 2.193 uIU/ML (0.55-4.78); TOTAL PROTEIN 7.6 G/DL (5.7-8.2); TRIGLYCERIDES LEVEL 121 MG/DL (<150)
[2024-12-27 17:13] LABS: FREE T4 1.44 NG/DL (0.89-1.76)
== END ==
LOC: M PLALAB 12:04
PROVIDERS: ATTEND Nurse Practitioner Family
DX: I10 Essential (primary) hypertension (principal); E03.9 Hypothyroidism, unspecified; E11.69 Type 2 diabetes mellitus with other specified complication

== ENCOUNTER → 2025-07-12 | Outpatient (CLI) | payer MEDICARE ==
[2025-07-12 15:13] LABS: ESTIMATED AVERAGE GLUCOSE 120.0 MG/DL (60-110)
== END ==
LOC: M PLALAB 09:58
PROVIDERS: ATTEND Nurse Practitioner Family
DX: E11.69 Type 2 diabetes mellitus with other specified complication (principal)